=== PATIENT | female | born 1955 | race Two or more races ===

== ENCOUNTER 2022-01-27 07:55 | Day surgery (SDC) | payer OTHER ==
[~2022-01-27] VITALS: Ht 167.6 cm; Wt 104.3 kg
[~2022-01-27 07:55] MED LIST: INDERAL PO; SYNTHROID100 MCG PO
== END 2022-01-27 16:55 | disposition home or self-care (01) ==
LOC: CIR.AMB 07:55
PROVIDERS: ATTEND Surgery
DX: C50.911 Malignant neoplasm of unspecified site of right female breast (principal); N60.91 Unspecified benign mammary dysplasia of right breast; Z20.822 Contact with and (suspected) exposure to COVID-19; I10 Essential (primary) hypertension; E03.9 Hypothyroidism, unspecified; E66.9 Obesity, unspecified

== ENCOUNTER 2022-02-17 05:58 | Day surgery (SDC) | payer OTHER | END 2022-02-17 13:20 | disposition home or self-care (01) | LOC: CIR.AMB 05:58 | PROVIDERS: ATTEND Surgery | DX: C50.511 Malignant neoplasm of lower-outer quadrant of right female breast (principal); R59.0 Localized enlarged lymph nodes; I10 Essential (primary) hypertension; E03.9 Hypothyroidism, unspecified; E66.09 Other obesity due to excess calories; Z20.822 Contact with and (suspected) exposure to COVID-19 | CPT/HCPCS: 38525; 78195; A9541 ==

== ENCOUNTER 2022-08-23 08:00 | Inpatient (IN) | payer OTHER ==
[~2022-08-23] VITALS: Ht 167.6 cm; Wt 107.0 kg
[2022-08-31] MEDS ORDERED: ANASTROZOLE1 MG (10:39)
[2022-08-31] MEDS ORDERED: PROPRANOLOL HCL10 MG (10:39)
== END 2022-08-31 18:23 | disposition home or self-care (01) | DRG 330 ==
LOC: O/R 08-29 05:40 → SURH 08-29 05:40 → SURG 08-29 15:16 → SURH 08-29 15:57
PROVIDERS: ADMIT Colon & Rectal Surgery; ATTEND Colon & Rectal Surgery
PROC: 07BB4ZZ Excision of Mesenteric Lymphatic, Percutaneous Endoscopic Approach (ICD-10-PCS; 2022-08-29)
PROC: 07BC4ZZ Excision of Pelvis Lymphatic, Percutaneous Endoscopic Approach (ICD-10-PCS; 2022-08-29)
PROC: 0DNW4ZZ Release Peritoneum, Percutaneous Endoscopic Approach (ICD-10-PCS; 2022-08-29)
PROC: 0DN84ZZ Release Small Intestine, Percutaneous Endoscopic Approach (ICD-10-PCS; 2022-08-29)
PROC: 0DNU4ZZ Release Omentum, Percutaneous Endoscopic Approach (ICD-10-PCS; 2022-08-29)
PROC: 0DQ84ZZ Repair Small Intestine, Percutaneous Endoscopic Approach (ICD-10-PCS; 2022-08-29)
PROC: 0DTF4ZZ Resection of Right Large Intestine, Percutaneous Endoscopic Approach (ICD-10-PCS; principal; 2022-08-29 10:30)
DX: D12.2 Benign neoplasm of ascending colon (principal); C18.0 Malignant neoplasm of cecum; K91.71 Accidental puncture and laceration of a digestive system organ or structure during a digestive system procedure; I10 Essential (primary) hypertension; E11.9 Type 2 diabetes mellitus without complications; E03.8 Other specified hypothyroidism; N73.6 Female pelvic peritoneal adhesions (postinfective); E66.9 Obesity, unspecified